=== PATIENT | female | born 1945 | race Caucasian/White ===

== ENCOUNTER 2018-08-07 09:45 | Emergency (ER) | payer MEDICARE ==
[2018-08-07 10:07] VITALS: BP 145/83
--- NOTE | 2018-08-07 11:53 | UC ---
Throat Pain/Nasal Reagan HPI - HPI Summary HPI Summary: 73 y/o female presents to the urgent care c/o sinus congestion w/ green nasal discharge, B/L ear pressure, dry cough, moderate yellowish PND for the past 1.5 weeks. Pt reports she was seen by her PCP in [place] in [place] 08/02/2018 and Rx Augmentin PO and albuterol inhaler to alleviate symptoms. Pt has PMHx of sinusitis and Polymyalgia Rheumatica. Her symptoms have worsen despite taking antibiotic. Pt thinks , She has probably developed some resistance to Augmentin since sh has taken it in the past a lot for sinusitis. He PND is not green and she woke up w/ B/L neck pain and sinus pain, severe B/L ear pressure. She hasn't been able to sleep well due to cough. 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 Pt denies fever, dizziness, SoB, chest pain,a bdominal pain, N/V/D. - History of Current Complaint Chief Complaint: UCGeneralIllness Stated Complaint: NECK PAIN, HEADACHE, SINUSES Time Seen by Provider: 08/07/18 11:22 Hx Obtained From: Patient Onset/Duration: Gradual Onset, Lasting Weeks - 1.5 weeks, Still Present, Worse Since - 3 days Severity: Moderate Pain Intensity: 6 Pain Scale Used: 0-10 Numeric Cough: Productive - yellowish phlegm Associated Signs & Symptoms: Positive: Sinus Discomfort, Nasal Discharge - yellowish, Other - B/L neck pain and sinus pain. Negative: Wheezing Related History: Other (Noted In Comments) - chronic sinusitis - Epiglottits Risk Factors Epiglottis Risk Factors: Negative - Allergies/Home Medications Allergies/Adverse Reactions: Allergies Allergy/AdvReac Type Severity Reaction Status Date / Time codeine Allergy Vomiting Verified 08/07/18 10:08 latex Allergy Rash Verified 08/07/18 10:08 Sulfa (Sulfonamide Allergy Hives Verified 08/07/18 10:08 Antibiotics) Home Medications: Home Medications Acetaminophen [Tylenol] 2 tab PO BID 08/07/18 [History Confirmed 08/07/18] Chlorpheniramine/Dextromethorp [Coricidin Hbp Cough & Cold Tab] 1 tab PO BID 04/26 [History Confirmed 08/07/18] Gabapentin [Neurontin] 1 tab PO BID 08/07/18 [History Confirmed 08/07/18] PMH/Surg Hx/FS Hx/Imm Hx Previously Healthy: Yes Other Endocrine History: Polymyalgia rheumatica Respiratory History: Asthma Other Respiratory History: chronic sinusitis - Surgical History Surgical History: Yes Surgery Procedure, Year, and Place: rinoplasty 1973 - Family History Known Family History: Positive: Cardiac Disease - Social History Occupation: Retired Lives: With Family Alcohol Use: Rare Substance Use Type: None Smoking Status (MU): Never Smoked Tobacco Review of Systems All Other Systems Reviewed And Are Negative: Yes Constitutional: Positive: Negative Skin: Positive: Negative Eyes: Positive: Negative ENT: Positive: Ear Ache - B/L ear pressure, Nasal Discharge - yellowish, Sinus Congestion, Sinus Pain/Tenderness, Other - moderte yellowish PND Respiratory: Positive: Cough - producitve w/ yellowish phlegm Cardiovascular: Positive: Negative Gastrointestinal: Positive: Negative Genitourinary: Positive: Negative Motor: Positive: Negative Neurovascular: Positive: Negative Musculoskeletal: Positive: Decreased ROM - neck, Other: - B/L neck pain Neurological: Positive: Headache Psychological: Positive: Negative Is Patient Immunocompromised?: No Physical Exam - Summary Physical Exam Summary: VITAL SIGNS: Reviewed. GENERAL: Patient is a well developed and nourished obese female who is sitting comfortable in the examining table. Patient is not in any acute respiratory distress. HEAD AND FACE: No signs of trauma. No ecchymosis, hematomas or skull depressions. Maxillary and frontal tenderness on percussion. EYES: PERRLA, EOMI x 2, No injected conjunctiva, no nystagmus. No photophobia. EARS: Hearing grossly intact. Ear canals and tympanic membranes are within normal limits. MOUTH: Positive pharynx with erythema, exudates, palatal petechiae. B/L tonsillar enlargement with exudate. Uvula in midline. Moderate yellowish PND. NECK: Supple, trachea is midline, no cervical lymphadenopathy, no JVD, no carotid bruit, no c-spine tenderness, neck with decreased ROM on flexion and Rt lateral bending due to pain w/ mild muscle spams. No meningeal signs, no Kernig' s or brudzinski's signs. CHEST: Symmetric, no tenderness at palpation LUNGS: Clear to auscultation bilaterally. No wheezing or crackles. CVS: Regular rate and rhythm, S1 and S2 present, no murmurs or gallops appreciated. ABDOMEN: Soft, non-tender. No signs of distention. No rebound no guarding, and no masses palpated. Bowel sounds are normal. EXTREMITIES: FROM in all major joints, no edema, no cyanosis or clubbing. NEURO: Alert and oriented x 3. No acute neurological deficits. Speech is normal and follows commands. SKIN: Dry and warm Triage Information Reviewed: Yes Vital Signs: Initial Vital Signs Temp 97.6 F 08/07/18 09:59 Pulse 94 08/07/18 09:59 Resp 18 08/07/18 09:59 BP 145/83 08/07/18 09:59 Pulse Ox 98 08/07/18 09:59 Throat Pain/Nasal Course/Dx - Course Course Of Treatment: 73 y/o female presents to the urgent care c/o sinus congestion w/ green nasal discharge, B/L ear pressure, dry cough, moderate yellowish PND for the past 1.5 weeks. Pt reports she was seen by her PCP in [place] in [place] 08/02/2018 and Rx Augmentin PO and albuterol inhaler to alleviate symptoms. Pt has PMHx of sinusitis and Polymyalgia Rheumatica. Her symptoms have worsen despite taking antibiotic. Pt thinks , She has probably developed some resistance to Augmentin since sh has taken it in the past a lot for sinusitis. He PND is not green and she woke up w/ B/L neck pain and sinus pain, severe B/L ear pressure. She hasn't been able to sleep well due to cough. 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 Pt denies fever, dizziness, SOB, chest pain,abdominal pain, N/V/D. Hx obtained. Pt w/ bacterial sinusitis and neck spasm on examination. Pt with 1.5 weeks of symptoms getting worse. Pt probably w/ some resistance to Augmentin. Pt given a soft tissue collar since she may be having a flare up of her Polymyalgia rheumatica. Pt Rx Doxycycline PO and Flonase nasal spray. Also Flexeril PO to alleviate her neck spasm. Discharge instructions explained to Pt. Advised to f/u w/ her PCP or ENT DR Olvera for further management in her chronic sinusitis if symptoms do not improve. Pt's BP is elevated today advised to decrease salt in diet, monitor BP and f/u with PCP for further management. D/C instructions explained. Pt understood and agreed with plan of care. - Differential Dx/Diagnosis Differential Diagnosis/HQI/PQRI: Influenza, Laryngitis, Pharyngitis, Sinusitis, URI, Other - torticollis, Provider Diagnosis: Acute bacterial sinusitis, Neck muscle spasm, Elevated BP without diagnosis of hypertension Discharge - Sign-Out/Discharge Documenting (check all that apply): Patient Departure - D/C home All imaging exams completed and their final reports reviewed: No Studies - Discharge Plan Condition: Stable Disposition: HOME Prescriptions: Cyclobenzaprine TAB* [Flexeril 10 MG TAB*] 10 mg PO TID PRN #21 tab PRN Reason: Spasms - Neck DOXYcycline CAP(*) [DOXYcycline 100MG CAP(*)] 100 mg PO BID #20 cap Fluticasone NASAL SPRAY 50MCG* [Flonase NASAL SPRAY 50MCG*] 2 spray BOTH NARES DAILY #1 btl Patient Education Materials: Sinusitis (ED), Muscle Spasm (ED) Referrals: Marjan Neal MD [Primary Care Provider] - 3 Days Additional Instructions: 1- Please increase fluid intake and rest. Stop taking Augmentin since probably you have developed resistance since you have taken so much in the past for your sinusitis. Take full course of Doxycycline PO antibiotic to avoid resistance. Please take yogurts w/ probiotics or culturelle to protect your GI system. 2-Use Flonase as directed to help drain fluid. Also buy saline drops to clear sinuses 3-Take Flexeril PO as directed to alleviate neck spasm. Please use the collar for comfort until symptoms resolve. Avoid strenuous exercise, heavy lifting. Rest. If it makes you too drowsy please do not drive. 4- Please f/u w/ your PCP or ENT DR Olvera if symptoms do not improve for further management and treatment in your recurrent sinusitis and polymalgia rheumatica 5- Your BP is elevated today. please decrease salt in your diet, monitor BP and if it continues to be elevated please f/u with your PCP for further management. 6- Please you can f/u for a massage in [place], at [address] [place] [address]. telf: [phone] - Billing Disposition and Condition Condition: STABLE Disposition: Home - Attestation Statements Provider Attestation: Per institutional requirements, I have reviewed the chart, however, I was not consulted specifically or made aware of this patient by the midlevel provider. I did not personally evaluate, interact with , or disposition this patient.
== END 2018-08-07 12:13 | disposition home or self-care (01) ==
LOC: UCCORT 09:45
DX: J01.90 Acute sinusitis, unspecified (principal); B96.89 Other specified bacterial agents as the cause of diseases classified elsewhere; M62.838 Other muscle spasm; R03.0 Elevated blood-pressure reading, without diagnosis of hypertension; M35.3 Polymyalgia rheumatica; J45.909 Unspecified asthma, uncomplicated; Z88.5 Allergy status to narcotic agent; Z88.2 Allergy status to sulfonamides
CPT/HCPCS: 99213; G0463